=== PATIENT | male | born 1975 | race Caucasian/White ===

== ENCOUNTER 2018-03-24 20:49 | Emergency (ER) | payer BC, OTHER ==
[2018-03-24] MEDS ORDERED: Adacel (T-DAP) 0.5 ML VIAL ONE (21:04)
[2018-03-24] MEDS ORDERED: Lidocaine 1% w/Epinephrine 1:100K 20 ML VIAL ONE (21:10)
[2018-03-24] MEDS ORDERED: Bacitracin Zinc 1 Packet ONE (22:11)
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
== END 2018-03-24 22:40 | disposition home or self-care (01) ==
LOC: ERS 20:49
DX: S51.812A Laceration without foreign body of left forearm, initial encounter (principal); Z23 Encounter for immunization; W26.0XXA Contact with knife, initial encounter
CPT/HCPCS: 12001; 90471; 90715; J2001